=== PATIENT | male | born 1960 | race Caucasian/White ===

== ENCOUNTER 2017-10-20 03:04 | Emergency (ER) | payer MEDICAID ==
[~2017-10-20] VITALS: Ht 185.4 cm; Wt 102.1 kg
[2017-10-20 03:05] VITALS: BP_SYST 151
--- NOTE | 2017-10-20 03:16 | NUR ---
Patient to ER bed 04 to gown for evaluation. Side rails up. Report given to DINORAH CLEMONS
--- NOTE | 2017-10-20 03:20 | NUR ---
Patient AOx4, ambulatory, presents to ER with complaint of back pain and leg pain 10/10 x3 days. Patient states he takes [place] for the pain but has not taken any at this time. Patient states he is awaiting back surgery and pending insurance authorization. No other symptoms or complaints at this time.
--- NOTE | 2017-10-20 03:40 | NUR ---
LUIS MANUEL JOSEPH at bedside for medical evaluation.
[2017-10-20] MEDS ORDERED: KETOROLAC TROMETHAMINE 60 MG/2 ML VIAL IM ONE (03:45)
[2017-10-20 04:11] LABS: BILIRUBIN,URINE NEGATIVE (NEGATIVE); BLOOD, URINE TRACE (NEGATIVE); CLARITY/URINE CLEAR (CLEAR); COLOR,URINE YELLOW (YELLOW); GLUCOSE,URINE NEGATIVE (NEGATIVE); KETONES,URINE NEGATIVE (NEGATIVE); LEUKOCYTE ESTERASE ,URINE 1+ (NEGATIVE); NITRITE, URINE NEGATIVE (NEGATIVE); PH,URINE 6.5 (5.0-8.0); PROTEIN URINE NEGATIVE (NEGATIVE); UROBILINOGEN,URINE 0.2 (0.2-1.0)
[2017-10-20 04:15] LABS: BACTERIA,URINE FEW /HPF (None Seen); RBC,URINE 0-3 /HPF (0-3)
--- NOTE | 2017-10-20 04:20 | NUR ---
No adverse reactions noted after medication administration. Will continue to monitor.
[2017-10-20 04:36] VITALS: BP_SYST 149
--- NOTE | 2017-10-20 04:36 | NUR ---
Patient given written and verbal discharge instructions and verbalizes understanding. ER MD discussed with patient the results and treatment provided. Patient in stable condition. ID arm band removed. Rx of [place] and Flexeril given. Patient educated on pain management and to follow up with PMD. Pain Scale 2/10 tolerable to patient. Opportunity for questions provided and answered.
== END 2017-10-20 04:36 | disposition home or self-care (01) ==
LOC: SED 03:04
DX: M54.40 Lumbago with sciatica, unspecified side (principal); I10 Essential (primary) hypertension
CPT/HCPCS: 81000; 87086; 96372; 99284; J1885

== ENCOUNTER 2022-10-29 09:43 | Emergency (ER) | payer OTHER, MEDICAID ==
[~2022-10-29] VITALS: Ht 185.4 cm; Wt 104.3 kg
--- NOTE | 2022-10-29 09:43 | NUR ---
BROUGHT BACK TO BED #5 AND TRIAGED. REPORT GIVEN TO NANCY Addendum: 10/29/22 at 0957 by TICO REPORT CHANGED TO JEAN
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
[2022-10-29 09:52] VITALS: BP_SYST 146
--- NOTE | 2022-10-29 09:59 | NUR ---
EDP AT BEDSIDE FOR INITIAL ASSESSMENT.
[2022-10-29] MEDS ORDERED: ACETAMINOPHEN 500 MG TABLET PO ONE (10:15)
[2022-10-29] MEDS ORDERED: OXYCODONE/ACETAMINOPHEN 5-325 TABLET PO ONE (10:15)
[2022-10-29] MEDS ORDERED: IBUPROFEN 600 MG TABLET PO ONE (10:15)
--- NOTE | 2022-10-29 11:30 | NUR ---
ALL RESULT BACK EDP REASSESS PATIENT AND D/C HOME WITH INSTRUCTION.
--- NOTE | 2022-10-29 11:32 | NUR ---
Patient given written and verbal discharge instructions and verbalizes understanding. ER MD discussed with patient the results and treatment provided. Patient in stable condition. ID arm band removed. IV catheter removed intact and dressing applied, no active bleeding. Rx of given. Patient educated on pain management and to follow up with PMD. Pain Scale 0. Opportunity for questions provided and answered. Medication side effect fact sheet provided.
== END 2022-10-29 11:32 | disposition home or self-care (01) ==
LOC: SED 09:43
DX: M54.2 Cervicalgia (principal); M54.50 Low back pain, unspecified; I10 Essential (primary) hypertension; F17.200 Nicotine dependence, unspecified, uncomplicated; Z79.899 Other long term (current) drug therapy; V89.2XXA Person injured in unspecified motor-vehicle accident, traffic, initial encounter; Y93.89 Activity, other specified; Y92.89 Other specified places as the place of occurrence of the external cause; Y99.8 Other external cause status
CPT/HCPCS: 72110; 72125-TC; 76376; 99284